=== PATIENT | male | born 1970 | race Caucasian/White ===

== ENCOUNTER 2017-01-02 11:43 | Observation (INO) ==
[2017-01-02] MEDS ORDERED: ASPIRIN PO STA (12:12)
[2017-01-02 13:15] LABS: MANUAL DIFF NEEDED? NO
[2017-01-02 13:27] LABS: BASO% 0.5 % (0.0-0.8); EOS# 0.24 X1000 (0.0-0.7); EOS% 2.5 % (0.0-10.0); HEMATOCRIT 46.3 % (42.0-52.0); HEMOGLOBIN 16.3 g/dL (14.0-18.0); IMM GRAN# 0.02 X1000 (0.0-0.04); IMM GRAN% 0.2 % (0.0-0.5); LYMPH# 2.68 X1000 (1.2-3.4); MCH 30.2 PG (27-31); MCHC 35.2 g/dL (33-37); MCV 85.9 FL (81-99); MONO# 1.02 X1000 (0.11-0.59); MONO% 10.7 % (1.7-9.3); MPV 10.1 FL (7.4-10.4); NEUT% 58.1 % (42.2-75.2); PLT 271 X1000 (130-400); RBC 5.39 XMIL (4.7-6.1)
[2017-01-02 13:31] LABS: INR 0.96
[2017-01-02 13:37] LABS: PTT HEPARIN PROTOCOL 30.3 Seconds
[2017-01-02 14:08] LABS: AGAP 12; ALKALINE PHOSPHATASE 91 U/L (32-122); BUN 16 mg/dL (8-22); CALCIUM 9.8 mg/dL (8.8-10.2); CHLORIDE 101 mmol/L (98-107); CK PROFILE 80 U/L (24-204); COSMO 275; GOT 14 U/L (10-34); GPT 10 U/L (10-44); MAGNESIUM 1.8 mg/dL (1.5-2.7); POTASSIUM 4.4 mmol/L (3.5-5.1); SODIUM 136 mmol/L (136-145); TCO2 23 mmol/L (25-35); TOTAL BILIRUBIN 0.22 mg/dL (0.20-1.00); TOTAL PROTEIN 6.2 g/dL (6.3-8.3)
[2017-01-02] MEDS ORDERED: TORADOL IV ONE (15:23)
[2017-01-02] MEDS ORDERED: ZOFRAN IV PRN (16:17)
[2017-01-02] MEDS ORDERED: TYLENOL PO PRN (16:17)
[2017-01-02] MEDS ORDERED: NS 1,000 ML IV ONE (16:17)
[2017-01-02] MEDS ORDERED: ZANAFLEX PO PRN (22:33)
[2017-01-02] MEDS ORDERED: MORPHINE IV PRN (22:45)
[2017-01-02] MEDS ORDERED: PERCOCET-10 PO PRN (22:46)
[2017-01-02] MEDS ORDERED: NS 1,000 ML ONE (23:10)
[2017-01-02] MEDS: NEURONTIN PO SCH (23:17)
[2017-01-03 03:26] LABS: AGAP 11; ALBUMIN 3.6 g/dL (3.5-5.0); ALKALINE PHOSPHATASE 88 U/L (32-122); BUN 12 mg/dL (8-22); CHLORIDE 107 mmol/L (98-107); COSMO 280; GOT 13 U/L (10-34); GPT 11 U/L (10-44); HDL 43 mg/dL (35-55); LDL 80 mg/dL; POTASSIUM 4.1 mmol/L (3.5-5.1); SODIUM 140 mmol/L (136-145); TCO2 22 mmol/L (25-35); TOTAL PROTEIN 6.7 g/dL (6.3-8.3); TRIGLYCERIDES 111 mg/dL (39-160); VLDL 22 mg/dL
[2017-01-03 03:30] LABS: HEMOGLOBIN A1C 5.6 % (4.8-6.0)
[2017-01-03] MEDS ORDERED: PERCOCET-10 PO SCH (05:00)
[2017-01-03] MEDS: HUMULIN R SUBQ SCH ×4 (06:03→23:18)
[2017-01-03] MEDS: PRILOSEC PO SCH (06:03)
[2017-01-03] MEDS: NEURONTIN PO SCH ×3 (06:03→20:08)
[2017-01-03] MEDS ORDERED: INSULIN PEN NEEDLES ONE (07:53)
[2017-01-03] MEDS ORDERED: LEXISCAN ONE (08:09)
[2017-01-03] MEDS: ASPIRIN EC PO SCH (10:29)
[2017-01-03] MEDS: PRINIVIL PO SCH (10:29)
[2017-01-03] MEDS: FOLIC ACID PO SCH (10:29)
[2017-01-03] MEDS: MOBIC PO SCH (10:30)
[2017-01-03] MEDS: CYMBALTA PO SCH (10:31)
[2017-01-03] MEDS: LIPITOR PO SCH (10:32)
[2017-01-03] MEDS: LOPRESSOR PO SCH (10:33)
[2017-01-03] MEDS: NON-FORMULARY MED SUBQ SCH (10:37)
[2017-01-03] MEDS ORDERED: NICODERM PATCH TD PRN (11:04)
[2017-01-03] MEDS ORDERED: FLOMAX PO SCH (21:00)
[2017-01-04] MEDS: HUMULIN R SUBQ SCH ×2 (06:30→11:30)
[2017-01-04] MEDS: NEURONTIN PO SCH (06:30)
[2017-01-04] MEDS: PRILOSEC PO SCH (06:30)
[2017-01-04 08:27] VITALS: BP 102/63
[2017-01-04] MEDS: NON-FORMULARY MED SUBQ SCH (08:55)
[2017-01-04] MEDS: LIPITOR PO SCH (08:56)
[2017-01-04] MEDS: CYMBALTA PO SCH (08:56)
[2017-01-04] MEDS: FOLIC ACID PO SCH (08:56)
[2017-01-04] MEDS: MOBIC PO SCH (08:56)
[2017-01-04] MEDS: ASPIRIN EC PO SCH (08:57)
[2017-01-04] MEDS: PRINIVIL PO SCH (08:58)
[2017-01-04] MEDS: LOPRESSOR PO SCH (08:58)
== END 2017-01-04 12:13 | disposition home or self-care (01) ==
LOC: SUPCPDRO → 3N 11:43 → ED 11:43 → SUATTDRO 20:58 → 3N 21:20
PROVIDERS: ATTEND Internal Medicine